=== PATIENT | female | born 2000 ===

== ENCOUNTER 2020-09-29 21:39 | Emergency (ER) | payer SELFPAY ==
[~2020-09-29] VITALS: Ht 163 cm; Wt 78.2 kg
[2020-09-29 21:58] VITALS: BP 112/74; PULSE 84; TEMP 98.4
== END 2020-09-29 22:50 | disposition left against medical advice (07) ==
LOC: COL.ER 21:39
DX: R06.02 Shortness of breath (principal)

== ENCOUNTER 2021-10-03 05:35 | Inpatient (IN) | payer SELFPAY ==
[2021-10-03] VITALS (23 sets, daily range): BP systolic 102–155; BP diastolic 48–94; PULSE 61–100; TEMP 97.8–98.7
[~2021-10-03] VITALS: Ht 160 cm; Wt 111.4 kg
--- NOTE | 2021-10-03 06:20 | NUR ---
THIS RN RECEIVES REPORT FROM MICHAEL FRAZIER
--- NOTE | 2021-10-03 06:41 | NUR ---
THIS RN CALLS Ángel FERNANDEZ [employer] FOR EPIDURAL PLACEMENT.
--- NOTE | 2021-10-03 07:05 | NUR ---
THIS RN PERFORMS SVE DUE TO PT'S URGE TO PUSH. PT INSTRUCTED TO TRY NOT TO PUSH WITH CONTRACTIONS. SVE .
[2021-10-03 07:07] LABS: BASO % 0.1 % (0.0-2.0); EOS # 0.1 K/mm3 (0.0-0.7); EOS % 0.9 % (0.0-4.0); GRAN # 6.1 K/mm3 (1.4-6.5); GRAN % 64.1 % (42.2-75.2); HEMOGLOBIN 11.8 g/dl (12.5-16.0); LYMPH # 2.7 K/mm3 (1.2-3.4); LYMPH % 28.6 % (20.0-51.0); MEAN CELL VOLUME 86 fl (80.0-100.0); MEAN CORPUSCULAR HEMOGLOBIN 28 pg (27-31); MEAN CORPUSCULAR HGB CONC 33 g/dl (33.0-37.0); MEAN PLATELET VOLUME 11.3 fl (7.4-10.4); MONO # 0.6 K/mm3 (0.1-0.6); MONO % 5.8 % (1.7-9.3); PLATELET COUNT 264 K/mm3 (130-400); RED BLOOD COUNT 4.15 M/mm3 (4.10-5.30); REDCELL DISTRIBUTION WIDTH-CV 13.7 % (11.5-14.5)
[2021-10-03 07:18] LABS: HEMATOCRIT 35.5 % (37.0-47.0)
--- NOTE | 2021-10-03 07:20 | NUR ---
0720 PT SAT UP ON EDGE OF BED FOR EPIDURAL PLACEMENT. MATERNAL HR TRACING INTERMITTENTELY. THIS RN AT BEDSIDE
--- NOTE | 2021-10-03 07:30 | NUR ---
[id number] THIS RN AT PATIENTS BEDSIDE. MATERNAL HR TRACING INTERMITTENTLY DUE TO MATERNAL POSITION. PT AMBULATING WITH CONTRACTIONS.
--- NOTE | 2021-10-03 19:55 | NUR ---
Pt does not speak Swazi. Amharic is her primary language. [employer] process controls technician attempted with no answer. Pt's boyfriend at bedside states "I can translate." Grandmother of baby also at bedside, providing cares for baby. Grandmother understands Swazi, but limitted in answering in Swazi Asked pt if she's planning on or bottle feeding. Boyfriend answers . asked if she was going to start tonight, tomorrow or when she goes home. Conversation in Amharic between boyfriend, pt and grandmother. Swazi answer from boyfriend, "after she takes a shower" Previous nurse was given same respionseThis nurse asks if she needs towels or anything for her shower. Boyfriend and grandmother answer no. Bathroom checked for towels.Explained that I would help when she's ready to breastfeed. Explained assessment process to pt. Verbalizes understanding. Instructed pt and family to call for any questions or needs.
[2021-10-04 01:00] VITALS: BP 106/45; PULSE 72; TEMP 98
[2021-10-04 03:20] VITALS: BP 106/45; PULSE 69; TEMP 98
[2021-10-04 08:00] VITALS: BP 95/54; PULSE 68; TEMP 97.9
[2021-10-04 11:40] VITALS: BP 92/42; PULSE 70; TEMP 98.5
--- NOTE | 2021-10-04 11:53 | NUR ---
[address] BRAXTON OF THE PATIENTS LOW BLOOD PRESSURE (NOTED IN CHART). THE PATIENT IS ASYMPTOMATIC CURRENTLY. DR. BRAXTON STATED TO CONTINUE TO MONITOR PATIENTS BLOOD PRESSURE.
[2021-10-04 16:26] VITALS: BP 101/46; PULSE 66; TEMP 97.7
--- NOTE | 2021-10-04 18:30 | NUR ---
Report recieved. Resting in bed. Support person at bedside. Updated whiteboard and reviewed POC.
[2021-10-04 20:00] VITALS: BP 102/50; PULSE 73; TEMP 98
[2021-10-05 01:00] VITALS: BP 100/56; PULSE 74; TEMP 98
[2021-10-05] MEDS ORDERED: IBU800 M1 PO (07:48)
[2021-10-05 08:40] VITALS: BP 100/49; PULSE 64; TEMP 98.1
--- NOTE | 2021-10-05 13:30 | NUR ---
Discharge instructions and follow up care reviewed with pt and at the bedside. Both verbalized an understanding, agreed with the plan and states no questions or concerns at this time.
== END 2021-10-05 13:55 | disposition home or self-care (01) | DRG 807 ==
LOC: LDRO 05:35 → LDR 06:41 → OB 06:41 → LDR 08:20 → OB 18:00
PROVIDERS: Obstetrics & Gynecology; ADMIT Obstetrics & Gynecology
PROC: 10E0XZZ Delivery of Products of Conception, External Approach (ICD-10-PCS; principal; 2021-10-03)
PROC: 0KQM0ZZ Repair Perineum Muscle, Open Approach (ICD-10-PCS; 2021-10-03)
DX: O99.214 Obesity complicating childbirth (principal); Z37.0 Single live birth; Z3A.38 38 weeks gestation of pregnancy; O70.1 Second degree perineal laceration during delivery
CPT/HCPCS: J2210; J2405; J2590; J2795; J7120